=== PATIENT | male | born 1990 | race Two or more races ===

== ENCOUNTER 2019-04-11 11:05 | Emergency (ER) | payer MEDICAID ==
[~2019-04-11] VITALS: Ht 170.2 cm; Wt 56.0 kg
[2019-04-11] MEDS ORDERED: IBUPROFEN 400MG TABLET PO ONE (14:30)
[2019-04-11 14:32] VITALS: BP 121/80
== END 2019-04-11 16:25 | disposition home or self-care (01) ==
LOC: ER 13:09
DX: S02.40DA Maxillary fracture, left side, initial encounter for closed fracture (principal); S02.32XA Fracture of orbital floor, left side, initial encounter for closed fracture; S02.842A Fracture of lateral orbital wall, left side, initial encounter for closed fracture; F12.90 Cannabis use, unspecified, uncomplicated; S02.2XXA Fracture of nasal bones, initial encounter for closed fracture; Y04.2XXA Assault by strike against or bumped into by another person, initial encounter; M25.561 Pain in right knee; R68.84 Jaw pain; Y93.89 Activity, other specified; Y92.89 Other specified places as the place of occurrence of the external cause
CPT/HCPCS: 70486; 73562; 99284

== ENCOUNTER 2019-11-17 22:13 | Emergency (ER) | payer MEDICAID ==
[~2019-11-17] VITALS: Ht 175.3 cm; Wt 67.0 kg
[2019-11-17] MEDS ORDERED: TETANUS, DIPHTHERIA, PERTUSSIS VAC/PF 0.5ML (>7YR OLD) IM ONE (23:00)
[2019-11-17 23:28] LABS: CLARITY URINE CLEAR (CLEAR); COLOR URINE YELLOW (YELLOW); KETONES URINE TRACE (NEGATIVE); LEUKOCYTE ESTERASE URINE NEGATIVE (NEGATIVE); NITRITE URINE NEGATIVE (NEGATIVE); OCCULT BLOOD URINE NEGATIVE (NEGATIVE); PROTEIN URINE NEGATIVE (NEGATIVE); SPECIFIC GRAVITY URINE 1.018 (1.005-1.030); UROBILINOGEN URINE 0.2 E.U./dL (0.2-1.0)
[2019-11-17 23:45] LABS: BASOPHILS % 0.2 % (0.0-2.0); EOSINOPHILS % 0.3 % (0.0-5.0); HEMATOCRIT. 41.2 % (42.0-52.0); LYMPHOCYTES % 17.8 % (20.0-50.0); MEAN CORPUSCULAR HEMOGLOBIN 27.9 pg (28.0-32.0); MEAN PLATELET VOLUME 8.2 fl (7.4-10.4); MONOCYTES % 6.8 % (2.0-8.0); NEUTROPHILS % 74.9 % (40.0-76.0); PLATELET 232 x1000/uL (130-400); RED BLOOD CELL COUNT 5.03 mill/uL (4.7-6.1); RED CELL DISTRIBUTION WIDTH 13.4 % (11.6-14.6)
[2019-11-17 23:48] LABS: *BARBITURATES SCREEN URINE NEGATIVE (NEGATIVE); *BENZODIAZEPINES SCREEN URINE NEGATIVE (NEGATIVE); *COCAINE SCREEN URINE NEGATIVE (NEGATIVE)
[2019-11-17 23:49] LABS: *AMPHETAMINES SCREEN URINE NEGATIVE (NEGATIVE); CANNABINOID URINE SCREEN NEGATIVE (NEGATIVE); METHADONE URINE SCREEN NEGATIVE (NEGATIVE); OPIATES URINE SCREEN NEGATIVE (NEGATIVE); PHENCYCLIDINE URINE SCREEN NEGATIVE (NEGATIVE)
[2019-11-17 23:52] LABS: CHLORIDE 109 mEq/L (98-107)
[2019-11-17 23:55] LABS: ETHANOL BLOOD 16 mg/dL
[2019-11-18] MEDS ORDERED: LORAZEPAM 1MG TABLET PO PRN (10:45)
[2019-11-23 16:27] VITALS: BP 118/72
== END 2019-11-23 16:45 ==
LOC: ER 22:13
DX: S51.812A Laceration without foreign body of left forearm, initial encounter (principal); R45.851 Suicidal ideations; F10.10 Alcohol abuse, uncomplicated; Z88.0 Allergy status to penicillin; W26.0XXA Contact with knife, initial encounter; Y93.89 Activity, other specified; Y92.89 Other specified places as the place of occurrence of the external cause; Y99.8 Other external cause status; Y90.9 Presence of alcohol in blood, level not specified
CPT/HCPCS: 12002; 36415; 80053; 80305; 80307; 80320; 80329; 81003; 85025; 90471; 90715; 99285; G0480

== ENCOUNTER 2019-11-28 12:26 | Emergency (ER) | payer MEDICAID ==
[~2019-11-28] VITALS: Ht 170.2 cm; Wt 61.0 kg
[2019-11-28 12:39] VITALS: BP 116/58
== END 2019-11-28 15:46 | disposition home or self-care (01) ==
LOC: ER 12:26
DX: Z48.02 Encounter for removal of sutures (principal)
CPT/HCPCS: 99281

== ENCOUNTER 2020-07-17 11:39 | Emergency (ER) | payer MEDICAID ==
[~2020-07-17] VITALS: Ht 177.8 cm; Wt 67.0 kg
[2020-07-17 11:43] VITALS: BP 88/58
[2020-07-17 13:17] LABS: CLARITY URINE CLEAR (CLEAR); COLOR URINE DARK YELLOW (YELLOW); KETONES URINE TRACE (NEGATIVE); LEUKOCYTE ESTERASE URINE NEGATIVE (NEGATIVE); NITRITE URINE NEGATIVE (NEGATIVE); OCCULT BLOOD URINE NEGATIVE (NEGATIVE); PROTEIN URINE TRACE (NEGATIVE); SPECIFIC GRAVITY URINE 1.031 (1.005-1.030); UROBILINOGEN URINE 0.2 E.U./dL (0.2-1.0)
[2020-07-17] MEDS ORDERED: SULF1TAB48 MT (13:44)
[2020-07-17] MEDS ORDERED: IBUP-2029 PO (13:44)
[2020-07-17] MEDS ORDERED: CLIN300C12 PO (13:44)
== END 2020-07-17 14:01 | disposition home or self-care (01) ==
LOC: ER 11:45
DX: L03.315 Cellulitis of perineum (principal); Z88.0 Allergy status to penicillin
CPT/HCPCS: 81003; 99283

== ENCOUNTER 2020-11-10 10:44 | Emergency (ER) | payer MEDICAID ==
[~2020-11-10] VITALS: Ht 172.7 cm; Wt 63.0 kg
[~2020-11-10 10:44] MED LIST: CLIN300C12 PO; IBUP-2029 PO; SULF1TAB48 MT
[2020-11-10] MEDS ORDERED: LIDOCAINE HCL 1% 20ML VIAL (Pyxis) INJ INFIL ONE (11:45)
[2020-11-10] MEDS ORDERED: CEFTRIAXONE SODIUM 500 MG/VIAL IM ONE (11:45)
[2020-11-10 11:54] LABS: CLARITY URINE CLEAR (CLEAR); COLOR URINE YELLOW (YELLOW); KETONES URINE NEGATIVE (NEGATIVE); LEUKOCYTE ESTERASE URINE NEGATIVE (NEGATIVE); NITRITE URINE NEGATIVE (NEGATIVE); OCCULT BLOOD URINE NEGATIVE (NEGATIVE); PROTEIN URINE NEGATIVE (NEGATIVE); SPECIFIC GRAVITY URINE 1.024 (1.005-1.030); UROBILINOGEN URINE 0.2 E.U./dL (0.2-1.0)
[2020-11-10] MEDS ORDERED: DOXY100C2 MT (12:00)
[2020-11-10 12:07] VITALS: BP 103/58
== END 2020-11-10 12:08 | disposition home or self-care (01) ==
LOC: ER 10:44
DX: R30.0 Dysuria (principal); Z20.2 Contact with and (suspected) exposure to infections with a predominantly sexual mode of transmission; Z88.0 Allergy status to penicillin
CPT/HCPCS: 81003; 96372; 99283; J0696; J3490; 87491; 87591

== ENCOUNTER 2021-01-07 10:58 | Emergency (ER) | payer MEDICAID, OTHER ==
[~2021-01-07] VITALS: Ht 170.2 cm; Wt 65.0 kg
[~2021-01-07 10:58] MED LIST changes: +DOXY100C2 MT
[2021-01-07 14:02] VITALS: BP 110/71
== END 2021-01-07 14:43 | disposition home or self-care (01) ==
LOC: ER 10:58
DX: M54.2 Cervicalgia (principal); R03.0 Elevated blood-pressure reading, without diagnosis of hypertension; Z88.0 Allergy status to penicillin
CPT/HCPCS: 99281

== ENCOUNTER 2022-07-04 10:07 | Emergency (ER) | payer MEDICAID, OTHER ==
[~2022-07-04] VITALS: Ht 167.6 cm; Wt 64.0 kg
[~2022-07-04 10:07] MED LIST changes: +CLIN-194 PO; -CLIN300C12 PO; -DOXY100C2 MT; +DOXY100C5 MT
[2022-07-04 10:22] VITALS: BP 143/86
[2022-07-04] MEDS ORDERED: DIPH25CA83 MT (11:44)
[2022-07-04] MEDS ORDERED: HYDR453.3 TP (11:44)
[2022-07-04] MEDS ORDERED: CEFTRIAXONE SODIUM 500 MG/VIAL IM ONE (11:45)
[2022-07-04] MEDS ORDERED: AZITHROMYCIN 500 MG TABLET PO ONE (11:45)
[2022-07-04 13:00] LABS: CLARITY URINE CLEAR (CLEAR); COLOR URINE YELLOW (YELLOW); KETONES URINE NEGATIVE (NEGATIVE); LEUKOCYTE ESTERASE URINE NEGATIVE (NEGATIVE); NITRITE URINE NEGATIVE (NEGATIVE); OCCULT BLOOD URINE NEGATIVE (NEGATIVE); PROTEIN URINE NEGATIVE (NEGATIVE); SPECIFIC GRAVITY URINE 1.014 (1.005-1.030); UROBILINOGEN URINE 0.2 E.U./dL (0.2-1.0)
[2022-07-09 04:07] LABS: NEISSERIA GONORRHOEAE NAA Negative (Negative)
== END 2022-07-04 12:20 | disposition home or self-care (01) ==
LOC: ER 10:07
DX: R21 Rash and other nonspecific skin eruption (principal); Z88.0 Allergy status to penicillin
CPT/HCPCS: 81003; 87491; 87591; 96372; 99283; J0696; Z7610

== ENCOUNTER 2022-11-22 14:47 | Emergency (ER) | payer MEDICAID ==
[~2022-11-22] VITALS: Ht 170.2 cm; Wt 70.0 kg
[~2022-11-22 14:47] MED LIST changes: +DIPH25CA83 MT; +HYDR453.3 TP
[2022-11-22 15:09] VITALS: TEMP 98.6; O2SAT 97
[2022-11-22 17:00] VITALS: BP 120/77; PULSE 68; RESP 18
[2022-11-22] MEDS ORDERED: KETOROLAC 30MG/ML VIAL IM ONE (17:00)
[2022-11-22] MEDS ORDERED: IBUP-2029 MT (17:20)
[2022-12-17] MEDS ORDERED: IBUP-2029 MT (10:07)
== END 2022-11-22 18:14 | disposition home or self-care (01) ==
LOC: ER 15:08
DX: S62.306A Unspecified fracture of fifth metacarpal bone, right hand, initial encounter for closed fracture (principal); X58.XXXA Exposure to other specified factors, initial encounter; Y93.89 Activity, other specified; Y92.89 Other specified places as the place of occurrence of the external cause; Y99.8 Other external cause status; Z79.899 Other long term (current) drug therapy
CPT/HCPCS: 99283; 73130; 29125; 96372; J1885; A4565

== ENCOUNTER 2023-12-10 00:01 | Emergency (ER) | payer MEDICAID ==
[~2023-12-10] VITALS: Ht 170.2 cm; Wt 79.0 kg
[~2023-12-10 00:01] MED LIST changes: +IBUP-2029 MT
[2023-12-10 00:18] VITALS: O2SAT 98
[2023-12-10 01:34] LABS: CLARITY URINE CLEAR (CLEAR); COLOR URINE YELLOW (YELLOW); GLUCOSE URINE NEGATIVE (NEGATIVE); KETONES URINE NEGATIVE (NEGATIVE); LEUKOCYTE ESTERASE URINE NEGATIVE (NEGATIVE); NITRITE URINE NEGATIVE (NEGATIVE); OCCULT BLOOD URINE NEGATIVE (NEGATIVE); PH URINE 5.5 (4.5-8.0); PROTEIN URINE NEGATIVE (NEGATIVE); SPECIFIC GRAVITY URINE 1.025 (1.005-1.030); UROBILINOGEN URINE 0.2 E.U./dL (0.2-1.0)
[2023-12-10] MEDS: IBUPROFEN 400MG TABLET PO ONE (01:36)
[2023-12-10 02:15] VITALS: BP 127/66; PULSE 74; RESP 16; TEMP 98.4
== END 2023-12-10 02:06 | disposition home or self-care (01) ==
LOC: ER 00:11
DX: Q55.69 Other congenital malformation of penis (principal); Z88.0 Allergy status to penicillin
CPT/HCPCS: 81003; 99283

== ENCOUNTER 2024-07-26 15:00 | Emergency (ER) | payer MEDICAID, OTHER ==
[~2024-07-26] VITALS: Ht 170.2 cm; Wt 69.0 kg
[2024-07-26 15:02] VITALS: O2SAT 98
[2024-07-26 15:07] VITALS: BP 130/94; PULSE 80; RESP 12; TEMP 36.7; O2SAT 97
[2024-07-26] MEDS: KETOROLAC 30MG/ML VIAL IM STA (15:42)
[2024-07-26 16:16] LABS: CLARITY URINE CLEAR (CLEAR); COLOR URINE YELLOW (YELLOW); GLUCOSE URINE NEGATIVE (NEGATIVE); KETONES URINE NEGATIVE (NEGATIVE); LEUKOCYTE ESTERASE URINE NEGATIVE (NEGATIVE); NITRITE URINE NEGATIVE (NEGATIVE); OCCULT BLOOD URINE NEGATIVE (NEGATIVE); PH URINE 5.5 (4.5-8.0); PROTEIN URINE NEGATIVE (NEGATIVE); SPECIFIC GRAVITY URINE 1.018 (1.005-1.030); UROBILINOGEN URINE 0.2 E.U./dL (0.2-1.0)
[2024-07-26] MEDS ORDERED: IBUP-2029 MT (16:24)
== END 2024-07-26 16:35 | disposition home or self-care (01) ==
LOC: ER 15:00
DX: G89.29 Other chronic pain (principal); M54.2 Cervicalgia; Z79.899 Other long term (current) drug therapy; Z98.890 Other specified postprocedural states; Z88.0 Allergy status to penicillin
CPT/HCPCS: 99283; 81003; 96372; J1885

== ENCOUNTER 2024-11-07 18:14 | Emergency (ER) | payer MEDICAID, OTHER ==
[~2024-11-07] VITALS: Ht 170.2 cm; Wt 75.0 kg
[2024-11-07 18:22] VITALS: O2SAT 98
[2024-11-07 20:11] LABS: CLARITY URINE CLEAR (CLEAR); COLOR URINE YELLOW (YELLOW); GLUCOSE URINE NEGATIVE (NEGATIVE); KETONES URINE NEGATIVE (NEGATIVE); LEUKOCYTE ESTERASE URINE NEGATIVE (NEGATIVE); NITRITE URINE NEGATIVE (NEGATIVE); OCCULT BLOOD URINE NEGATIVE (NEGATIVE); PROTEIN URINE NEGATIVE (NEGATIVE); SPECIFIC GRAVITY URINE 1.004 (1.005-1.030); UROBILINOGEN URINE 0.2 E.U./dL (0.2-1.0)
[2024-11-07 20:45] VITALS: BP 119/79; PULSE 63; RESP 20; TEMP 36.7; O2SAT 98
[2024-11-10 07:11] LABS: CHLAMYDIA TRACHOMATIS NAA Negative (Negative); NEISSERIA GONORRHOEAE NAA Negative (Negative)
== END 2024-11-07 20:50 | disposition home or self-care (01) ==
LOC: ER 18:14
DX: R39.15 Urgency of urination (principal); Z11.3 Encounter for screening for infections with a predominantly sexual mode of transmission; Z88.0 Allergy status to penicillin; Z79.899 Other long term (current) drug therapy; Z98.890 Other specified postprocedural states
CPT/HCPCS: 81003; 87491; 87591; 99283